=== PATIENT | male | born 1960 | race Caucasian/White ===

== ENCOUNTER → 2024-08-10 | Day surgery (SDC) | payer BC ==
[~2024-08-10] MED LIST: PROPOFOL 10 MG/ML 20 ML VIAL IV ONE
[2024-08-10 13:33] VITALS: TEMP 98.1
[2024-08-10] MEDS: LACTATED RINGERS 1,000 ML IV ONE (13:34)
[2024-08-10] MEDS: LACTATED RINGERS 1,000 ML IV SCH (13:42)
--- NOTE | 2024-08-10 14:48 | P.PCN ---
Date of Procedure: 08/10/24 Procedure(s) Performed: BRIEF HISTORY: Patient is a 64-year-old pleasant white male scheduled for an elective colonoscopy as a part of screening for colon cancer. PROCEDURE PERFORMED: Colonoscopy with snare polypectomy. PREOPERATIVE DIAGNOSIS: Screening for colon cancer. IV sedation per Anesthesia. PROCEDURE: After informed consent was obtained, the patient, was brought into the endoscopy unit. IV sedation was administered by Anesthesia under continuous monitoring. Digital rectal examination was normal. Initially the Olympus CF-160 flexible video colonoscope was then inserted in the rectum, gradually advanced into the cecum without any difficulty. Careful examination was performed as the scope was gradually being withdrawn. Ileocecal valve and the appendiceal orifice were visualized and appeared normal. Prep was excellent. Mucosa of the cecum, appeared normal. In the ascending there was a 5 mm polyp removed by cold snare polypectomy. In the descending colon there was a 1 cm polyp removed by hot snare polypectomy. Rest of the ascending colon, transverse colon, descending colon, sigmoid colon, and rectum appeared normal. Scattered sigmoid diverticulosis. Retroflexion was performed in the rectum and no lesions were seen. The patient tolerated the procedure well. IMPRESSION: 5 mm ascending colon polyp status post cold snare polypectomy 1 cm descending colon polyp status post snare polypectomy Scattered sigmoid diverticulosis Recommendations: Findings of this examination were discussed with the patient as well as his family. Follow-up with the biopsy results. If the biopsy reveals adenoma he can have repeat colonoscopy in 3 years. .
[2024-08-10 15:07] VITALS: BP 123/87; PULSE 76; RESP 14
== END ==
LOC: ORWHC2ENDO 12:33
PROVIDERS: ATTEND Internal Medicine Gastroenterology
DX: Z12.11 Encounter for screening for malignant neoplasm of colon (principal); D12.3 Benign neoplasm of transverse colon; D12.4 Benign neoplasm of descending colon; K57.30 Diverticulosis of large intestine without perforation or abscess without bleeding; I10 Essential (primary) hypertension; Z79.899 Other long term (current) drug therapy
CPT/HCPCS: 45385; 88305; J2704

== ENCOUNTER → 2024-11-28 | Outpatient (CLI) | payer BC ==
--- NOTE | 2024-11-28 12:19 | XR ---
EXAMINATION TYPE: XR abdomen 2V DATE OF EXAM: 11/28/2024 12:12 PM COMPARISON: None. CLINICAL INDICATION: Male, 64 years old with history of R19.8 ABDOMEN, TECHNIQUE: XR abdomen 2V views of the abdomen are submitted. FINDINGS: There is no convincing evidence of pneumoperitoneum. The Bowel gas pattern is nonspecific and nonobstructive. No sizable air-fluid levels are seen. No mass effects are noted. No renal calcifications are identified. Phleboliths noted. IMPRESSION: 1. Nonspecific nonobstructive bowel gas pattern [facility], , 11/28/2024 12:17 PM
== END | disposition home or self-care (01) ==
LOC: RADXRMAIN 11:48
PROVIDERS: ATTEND Nurse Practitioner Family
DX: R19.8 Other specified symptoms and signs involving the digestive system and abdomen (principal)
CPT/HCPCS: 74019